=== PATIENT | male | born 1985 | race African-American/Black ===

== ENCOUNTER 2021-07-26 15:04 | Emergency (ER) | payer BC ==
[~2021-07-26] VITALS: Ht 175.3 cm; Wt 99.8 kg
[2021-07-26] MEDS ORDERED: CASIRIVIMAB/IMDEVIMAB 10 ML in SODIUM CHLORIDE 0.9% 100 ML IV ONE (16:00)
== END 2021-07-26 17:00 | disposition home or self-care (01) ==
LOC: ER 16:15
DX: U07.1 COVID-19 (principal)
CPT/HCPCS: 99283; J7050